=== PATIENT | female | born 1960 | race Caucasian/White ===

== ENCOUNTER 2019-05-09 08:43 | Emergency (ER) | payer MEDICARE ==
[~2019-05-09] VITALS: Ht 165.1 cm; Wt 50.0 kg
[2019-05-09] MEDS ORDERED: normal saline 1000ML IV soln IVB ONE (08:55)
[2019-05-09] MEDS ORDERED: methylPREDNISolone sod succ 125mg/2ml vial IV ONE (08:55)
[2019-05-09] MEDS ORDERED: albuterol 2.5 MG/3 ML nebule CONTNEB PRN (08:55)
[2019-05-09] MEDS ORDERED: CefTRIAXone 2gm/D5W 50ml 50 ML IV ONE (09:00)
[2019-05-09] MEDS ORDERED: normal saline 1000ML IV soln IV ONE (09:00)
[2019-05-09 09:30] LABS: HEMOGLOBIN 14.8 g/dl (12.0-16.0); MEAN PLATELET VOLUME 7.8 FL (7.4-10.4)
[2019-05-09 09:32] LABS: HEMATOCRIT 43.8 % (35.0-45.0); MEAN CORPUSCULAR HEMOGLOBIN 34.6 PG (27.0-31.0); MEAN CORPUSCULAR HGB CONC 33.9 g/dL (33.0-36.5); MEAN CORPUSCULAR VOLUME 102.1 FL (78-98); PLATELET COUNT 249 X10'3 (140-440); RED BLOOD COUNT 4.29 X10'6 (4.20-5.60); WHITE BLOOD COUNT 6.2 X10'3 (4.5-11.0)
[2019-05-09 09:44] LABS: ALANINE AMINOTRANSFERASE 27 U/L (12-78); ALBUMIN 3.8 G/DL (3.4-5.0); ALBUMIN/GLOBULIN RATIO 1.2 (1.1-1.5); ALKALINE PHOSPHATASE 85 IU/L (46-116); ANION GAP 4 (8-16); ASPARTATE AMINO TRANSFERASE 24 U/L (10-37); BILIRUBIN,TOTAL 0.4 MG/DL (0.1-1.0); BLOOD UREA NITROGEN 8 MG/DL (7-18); BUN/CREATININE RATIO 12.5 (6.6-38.0); CALCIUM 9.3 MG/DL (8.5-10.1); CHLORIDE 102 MMOL/L (99-107); CREATININE 0.64 MG/DL (0.40-0.90); GLUCOSE 95 MG/DL (70-104); POTASSIUM 3.9 MMOL/L (3.5-5.1); SODIUM 135 MMOL/L (135-145); TOTAL CARBON DIOXIDE 29.5 MMOL/L (24-32); TOTAL PROTEIN 6.9 G/DL (6.4-8.2); eGFR > 90 ML/MIN
[2019-05-09 10:24] LABS: TOTAL CELLS COUNTED 100
[2019-05-09 10:25] LABS: ANISOCYTOSIS FEW; PLATELET ESTIMATE NORMAL
[2019-05-09] MEDS ORDERED: ipratropium/albuterol 3ml nebule NEB ONE (10:50)
[2019-05-09] MEDS ORDERED: ALB0.5UD IH (10:51)
[2019-05-09] MEDS ORDERED: AMOX-419 PO (10:51)
[2019-05-09] MEDS ORDERED: ALBU6.7H9 INH (10:51)
[2019-05-09] MEDS ORDERED: PRED20TA PO (10:51)
[2019-05-09 11:16] VITALS: BP 116/69
== END 2019-05-09 11:22 | disposition home or self-care (01) ==
LOC: ER 08:44
DX: J44.1 Chronic obstructive pulmonary disease with (acute) exacerbation (principal); J40 Bronchitis, not specified as acute or chronic; Z87.891 Personal history of nicotine dependence; Z88.6 Allergy status to analgesic agent; Z79.899 Other long term (current) drug therapy
CPT/HCPCS: 71045; 80053; 85025; 93005; 94640; 94644; 96365; 96375; 99285; J0696; J2930; J7030